=== PATIENT | female | born 2000 | race Hispanic/Latino ===

== ENCOUNTER 2023-01-30 21:35 | Emergency (ER) | payer SELFPAY ==
[~2023-01-30] VITALS: Ht 165.1 cm; Wt 136.1 kg
[2023-01-30] MEDS ORDERED: FAMOTIDINE 20 MG/2 ML VIAL IV STA (22:08)
[2023-01-30] MEDS ORDERED: ONDANSETRON HCL INJ 2MG/ML 2ML 2 MG/ML VIAL IV STA (22:08)
[2023-01-30] MEDS ORDERED: SODIUM CHLORIDE 0.9% 1000ML 1,000 ML IV ONE (22:15)
[2023-01-30] MEDS ORDERED: ACETAMINOPHEN 325 MG TAB PO ONE (22:15)
[2023-01-30] MEDS ORDERED: ONDANSETRON HCL INJ 2MG/ML 2ML 2 MG/ML VIAL ONE (22:39)
[2023-01-30] MEDS ORDERED: AMOXICILLIN/CLAVULANATE K 875 MG TAB PO STA (22:57)
[2023-01-30 23:00] VITALS: O2SAT 98
[2023-01-30] MEDS ORDERED: AMOXICILLIN/CLAVULANATE K 875 MG TAB ONE (23:00)
[2023-01-30] MEDS ORDERED: AMOXICILLIN500 MG PO (23:01)
[2023-01-30] MEDS ORDERED: ONDANSETRON ODT4 MG PO (23:02)
== END 2023-01-30 23:47 | disposition home or self-care (01) ==
LOC: FSED 21:47
DX: R05.9 Cough, unspecified (principal); J02.0 Streptococcal pharyngitis; R11.2 Nausea with vomiting, unspecified; E86.0 Dehydration; R51.9 Headache, unspecified; N92.6 Irregular menstruation, unspecified
CPT/HCPCS: 70450; 80048; 80076; 80307; 81003; 81025; 85025; 99284; J2405